=== PATIENT | male | born 1945 | race Caucasian/White ===

== ENCOUNTER 2020-01-16 20:59 | Inpatient (IN) | payer SELFPAY ==
[~2020-01-16] VITALS: Ht 185.4 cm; Wt 94.4 kg
--- NOTE | 2020-01-16 21:05 | NUR ---
TASK RN: PT IN CT AT THIS TIME
[2020-01-16] MEDS ORDERED: LABETALOL 20 MG/4 ML ONE (21:16)
--- NOTE | 2020-01-16 21:20 | NUR ---
per er md bonilla give 10mg labatalol
[2020-01-16 21:27] LABS: BASOPHILS % (AUTO) 1 % (0-1); EOSINOPHILS % (AUTO) 4 % (1-7); LYMPHOCYTES % (AUTO) 19 % (22-44); MEAN CORPUSCULAR HEMOGLOBIN 30.5 pg (27.5-34.5); MEAN PLATELET VOLUME 6.9 fL (7.4-10.4); MONOCYTES % (AUTO) 9 % (2-9); NEUTROPHILS % (AUTO) 67 % (42-75); PLATELET COUNT 256 x10^3/uL (130-400); RED BLOOD COUNT 5.59 x10^6/uL (4.38-5.82); RED CELL DISTRIBUTION WIDTH 13.9 % (9.4-14.8)
--- NOTE | 2020-01-16 21:28 | NUR ---
CODE NEURO, LAST KNOWN WELL @ 1800. EXPRESIVE APHAGIA, FACIAL DROOP. PT STATES HE WOKE UP FROM [place] AND FELT NORMAL, BUT WHEN HE WAS TYPING ON HIS COMPUTER AND WASNT ABLE TO TYPE THE WORDS HE WANTED TO TYPE AND WASNT ABLE TO READ THE WORDS HE WAS TYPEING. 10 MG LABATALOL GIVEN AT [facility] GANG LEADER FOR HTN. PT WAS A WALK IN THERE AND WAS EMERGENTLY TRANSFERED HERE. ER MD FINN ASSESSED AT [facility] AND PT TAKEN DIRECTLY TO CT. PT PLACED IN TRAUMA BAY, ATTACHED TO ALL MONITORS. TELE NURSE COMPLETED CODE NEURO SHEET AND DETERMINED AN NIHSS SCORE OF 2. SHEET PLACED WITH PAPER CHART.
[2020-01-16 21:29] LABS: MD NO
[2020-01-16] MEDS ORDERED: LABETALOL 5MG/ML, 20ML IVPush ONE (21:30)
[2020-01-16 21:38] LABS: INTERNATIONAL NORMALIZED RATIO 1.07 (0.93-1.1); PROTHROMBIN TIME 11.3 Seconds (9.6-11.5)
--- NOTE | 2020-01-16 21:57 | NUR ---
TELE NEURO CONSULT CONDUCTED.
[2020-01-16 22:03] LABS: FREE T4 (FREE THYROXINE) 1.32 ng/dL (0.76-1.46)
--- NOTE | 2020-01-16 22:10 | NUR ---
NEUROLOGIST AND DR FINN DECIDED NO TPA. NICARDIPINE PAUSED PER ER MD FINN.
--- NOTE | 2020-01-16 22:15 | NUR ---
SWALLOW EVAL COMPLETED BY ME. PT PASSED.
[2020-01-16] MEDS ORDERED: OMNIPAQUE 350 MG/ML, 100ML BOTTLE ONE (22:49)
--- NOTE | 2020-01-16 22:56 | NUR ---
PT RESTING ON GURNEY. SIGNIFICANT OTHER AT BEDSIDE. NO DISTRESS. PT DENIES PAIN.
--- NOTE | 2020-01-16 23:44 | NUR ---
REPORT TO GERMAN DANIELS
[2020-01-17] VITALS (9 sets, daily range): BP systolic 157–185; BP diastolic 103–113
[2020-01-17] MEDS ORDERED: DOCUSATE 100 MG CAPSULE PO PRN (01:00)
[2020-01-17] MEDS ORDERED: ACETAMINOPHEN 650 MG/20.3 ML UDC PO PRN (01:00)
[2020-01-17] MEDS ORDERED: ENALAPRILAT 1.25 MG/ML, 2ML IV PRN (01:00)
[2020-01-17] MEDS ORDERED: TEMAZEPAM 15 MG CAPSULE PO PRN (01:00)
[2020-01-17] MEDS: ATORVASTATIN 80 MG TABLET PO SCH ×2 (01:30→21:33)
[2020-01-17] MEDS: HEPARIN 5,000 UNITS/ML, 1ML SQ SCH ×3 (01:33→16:38)
[2020-01-17] MEDS: NICOTINE 14MG/24 HR PATCH.TD24 TD SCH ×2 (01:33→16:38)
[2020-01-17 05:02] LABS: BASOPHILS % (AUTO) 1 % (0-1); EOSINOPHILS % (AUTO) 4 % (1-7); HCT (SEDRATE) 52.3 % (39.2-51.8); LYMPHOCYTES % (AUTO) 27 % (22-44); MEAN CORPUSCULAR HEMOGLOBIN 30.5 pg (27.5-34.5); MEAN CORPUSCULAR HGB CONC 33.9 g/dL (33.2-36.2); MEAN PLATELET VOLUME 7.1 fL (7.4-10.4); MONOCYTES % (AUTO) 12 % (2-9); NEUTROPHILS % (AUTO) 57 % (42-75); PLATELET COUNT 276 x10^3/uL (130-400); RED BLOOD COUNT 5.77 x10^6/uL (4.38-5.82); RED CELL DISTRIBUTION WIDTH 13.8 % (9.4-14.8)
[2020-01-17 05:18] LABS: MD NO
[2020-01-17] MEDS ORDERED: ASPIRIN 81 MG TABLET CHEW PO/NG SCH (09:00)
[2020-01-17] MEDS ORDERED: LORazepam 2 MG/ML, 1ML IVPush PRN ×2 (09:00)
[2020-01-17] MEDS: LORazepam 0.5MG TABLET PO PRN ×2 (14:27→21:33)
[2020-01-18] VITALS (7 sets, daily range): BP systolic 129–189; BP diastolic 75–120
[2020-01-18] MEDS: HEPARIN 5,000 UNITS/ML, 1ML SQ SCH ×3 (01:38→17:36)
[2020-01-18 05:33] LABS: ANION GAP 6 mmol/L (5-15); CALCIUM 9.4 mg/dL (8.5-10.1); CHLORIDE 107 mmol/L (98-107); CHOLESTEROL, TOTAL 147 mg/dL (140-239); CREATININE 1.33 mg/dL (0.7-1.3)
[2020-01-18 05:36] LABS: CHOL/HDL RATIO 3.5; HDL CHOL % 29 % (26-37); HDL CHOLESTEROL (DIRECT) 42 mg/dL (40-60); LDL CHOLESTEROL,CALCULATED 82 mg/dL (54-169); TRIGLYCERIDES 117 mg/dL (50-200); VLDL CHOLESTEROL 23 mg/dL (0-25)
[2020-01-18] MEDS: CLOPIDOGREL 75 MG TABLET PO SCH (08:40)
[2020-01-18] MEDS: LORazepam 0.5MG TABLET PO PRN ×2 (08:41→20:17)
[2020-01-18] MEDS: ASPIRIN 81 MG TABLET CHEW PO/NG SCH (08:41)
[2020-01-18] MEDS ORDERED: NICOTINE 14MG/24 HR PATCH.TD24 TD PRN (17:30)
[2020-01-18] MEDS: ATORVASTATIN 80 MG TABLET PO SCH (20:17)
[2020-01-19 00:31] VITALS: BP 149/97
[2020-01-19] MEDS: NICOTINE 14MG/24 HR PATCH.TD24 TD SCH (01:12)
[2020-01-19] MEDS: HEPARIN 5,000 UNITS/ML, 1ML SQ SCH ×2 (01:12→08:33)
[2020-01-19 04:36] VITALS: BP 119/73
[2020-01-19 04:37] LABS: ALBUMIN 3.6 g/dL (3.4-5.0); ANION GAP 8 mmol/L (5-15); CALCIUM 9.6 mg/dL (8.5-10.1); CHLORIDE 108 mmol/L (98-107)
[2020-01-19 04:40] LABS: ALANINE AMINOTRANSFERASE 40 U/L (12-78); ALKALINE PHOSPHATASE 80 U/L (45-117); BILIRUBIN,TOTAL 1.5 mg/dL (0.2-1.0); CREATININE 1.54 mg/dL (0.7-1.3); TOTAL PROTEIN 8.2 g/dL (6.4-8.2)
[2020-01-19 07:20] VITALS: BP 138/89
[2020-01-19] MEDS: ASPIRIN 81 MG TABLET CHEW PO/NG SCH (08:33)
[2020-01-19] MEDS: CLOPIDOGREL 75 MG TABLET PO SCH (08:34)
[2020-01-19] MEDS: LORazepam 0.5MG TABLET PO PRN (08:38)
[2020-01-19] MEDS ORDERED: AMLODIPINE 5 MG TABLET PO SCH (09:00)
[2020-01-19] MEDS ORDERED: AMLO-150 PO (10:52)
[2020-01-19] MEDS ORDERED: ATOR-2 PO (10:52)
[2020-01-19] MEDS ORDERED: ASPI-515 PO/NG (10:52)
[2020-01-19] MEDS ORDERED: CLOP75TA PO (10:52)
[2020-01-19 12:11] VITALS: BP 133/85
[2020-01-19 12:45] VITALS: BP 130/89
== END 2020-01-19 16:05 | disposition home or self-care (01) | DRG 64 ==
LOC: ED 22:30 → EDIP 22:34 → ED 22:42 → MERGE 22:42 → 5SO 23:50 → DCLOUNGE 01-19 15:55
PROVIDERS: ADMIT Family Medicine; ATTEND Internal Medicine
DX: I63.9 Cerebral infarction, unspecified (principal); N17.0 Acute kidney failure with tubular necrosis; I16.1 Hypertensive emergency; E04.9 Nontoxic goiter, unspecified; F17.210 Nicotine dependence, cigarettes, uncomplicated; G62.9 Polyneuropathy, unspecified; I10 Essential (primary) hypertension; R47.01 Aphasia; Z79.82 Long term (current) use of aspirin; Z79.899 Other long term (current) drug therapy; Z82.3 Family history of stroke; Z82.49 Family history of ischemic heart disease and other diseases of the circulatory system
CPT/HCPCS: 36415; 70450; 70496; 70498; 70551; 80047; 80048; 80053; 80061; 83036; 84439; 84443; 85025; 85610; 85651; 85730; 93005; 93306; G0378; J1644; Q9967; 92523-GN; J2060; J7050